=== PATIENT | male | born 1945 | race Caucasian/White ===

== ENCOUNTER → 2019-02-28 | Outpatient (CLI) | payer MEDICARE ==
--- NOTE | 2019-02-28 18:49 | REP ---
CHEST, TWO VIEWS: Two views of the chest were performed. Linear fibro atelectatic change is seen in each lung base without consolidating infiltrate. There is mild elevation of the left hemidiaphragm. The heart is not enlarged. There is calcification and tortuosity of the thoracic aorta. The mediastinal silhouette is otherwise unremarkable. There are degenerative changes of the spine. IMPRESSION: Mild bibasilar fibro atelectatic change. Electronically Signed by Jovan Erazo MD 02/28/2019 08:28 P
== END ==
LOC: M LRY 18:28
PROVIDERS: ATTEND Physician Assistant
DX: J98.11 Atelectasis (principal); R05 Cough
CPT/HCPCS: 71046; G0463